=== PATIENT | female | born 1940 | race Caucasian/White ===

== ENCOUNTER 2017-08-29 11:34 | Day surgery (SDC) | payer MEDICARE, OTHER ==
[2017-08-29 13:05] LABS: #Basophils 0.1 thou/uL (0.0-0.2); #Eosinphils 0.3 thou/uL (0.0-0.7); #Lymphocytes 2.3 thou/uL (1.20-3.40); #Monocytes 0.6 thou/uL (0.11-0.59); #Neutrophils 4.5 thou/uL (1.40-6.50); %Basophils 1.2 % (0.0-1.0); %Eosinophils 3.4 % (0.0-10.0); %Lymphocytes 29.4 % (21.0-51.0); %Monocytes 7.3 % (0.0-10.0); %Neutrophils 58.7 % (42.0-75.0); Hemoglobin 16.6 g/dL (12.0-16.0); Mean Corpuscular HGB CONC 32.7 g/dL (32.0-36.0); Mean Corpuscular Hemoglobin 29.4 pg (27.0-31.0); Mean Corpuscular Volume 89.8 fl (81.0-99.0); Mean Platelet Volume 6.7 fL (7.4-10.4); Platelet Count 265 thou/uL (130-400); RBC Distribution Width 13.1 % (11.5-14.5); Red Blood Cell (RBC) Count 5.64 mill/uL (4.20-5.40); White Blood Cell (WBC) Count 7.7 thou/uL (4.8-10.8)
[2017-08-29] MEDS ORDERED: ePHEDrine/0.9% NaCl/PF SYRINGE 50 mg/10 ml ONE (13:15)
[2017-08-29] MEDS ORDERED: EPINEPHrine 1 MG/ML AMP ONE (13:16)
[2017-08-29] MEDS ORDERED: EPINEPHrine 1 MG/10 ML Abboject SYRINGE ONE (13:16)
[2017-08-29 13:24] LABS: INR-International Normal Ratio 1.3; PTT 39.6 SEC (22.9-36.1); Prothrombin Time 16.4 SEC (12.0-14.7)
[2017-08-29 13:27] LABS: Anion Gap 13 mmol/L (10-20); BUN (Urea Nitrogen) 8 mg/dL (9.8-20.1); Calc. Creatinine Clearance 0 mL/min (70-130); Calcium 9.5 mg/dL (7.8-10.44); Carbon Dioxide 26 mmol/L (23-31); Chloride 104 mmol/L (98-107); Estimated GFR-MDRD Greater than 90; Glucose 97 mg/dL (83-110); Potassium 3.6 mmol/L (3.5-5.1); Sodium 139 mmol/L (136-145)
--- NOTE | 2017-08-29 13:48 | OP ---
DATE OF PROCEDURE: 08/29/2017 PROCEDURE: Cardioversion. SURGEON: Dr. Edgar Arrington REFERRING PHYSICIAN: Dr. Norberto Fischer REASON FOR PROCEDURE: Ms. Miller is a 77-year-old woman with history of atrial arrhythmias. She h as had atrial fibrillation ablation in 05/2017, now had recurrence of atypical atrial flutter. She i s here for cardioversion. PROCEDURE: The patient received propofol per Anesthesia specialist. After adequate sedation achieve d, a 50 joule shock promptly converted the patient back to sinus bradycardia. After sinus bradycardi a was noted, transient external pacing was instituted, but then the patient regained a good junctiona l rhythm without excessive asystole at 40 beats per minute. She is continued to be monitored. Heart rate then improved to 50 beats per minute, sinus bradycardia. CONCLUSION: 1. Successful cardioversion. 2. Significant bradycardia post-cardioversion, seems to have a degree of sinus node disease. We conrad l stop digoxin and continue reducing her metoprolol if necessary. 3. Continue Eliquis. 4. Consider pacing if no adequate response is seen response is seen through the usual daily activiti es and symptomatic bradycardia occurs.
[2017-08-29] MEDS ORDERED: PROPOFOL 20 ML ONE (13:59)
--- NOTE | 2017-08-29 16:03 | EKG ---
Test Reason : PREOP Blood Pressure : / mmHG Vent. Rate : 096 BPM Atrial Rate : 096 BPM P-R Int : 000 ms QRS Dur : 078 ms QT Int : 366 ms P-R-T Axes : 000 -62 -63 degrees QTc Int : 462 ms Sinus rhythm with short UT Left anterior fascicular block Moderate voltage criteria for LVH, may be normal variant Abnormal ECG Confirmed by DONNA MABRY ([id number]) on 08/29/2017 4:02:45 PM Referred By: LEON Confirmed By:DONNA MABRY
[2017-08-29] MEDS ORDERED: PROPOFOL 200 MG/20 ML VIAL ONE (16:05)
--- NOTE | 2017-08-29 16:05 | EKG ---
Test Reason : POST CARDIOVERSION Blood Pressure : / mmHG Vent. Rate : 055 BPM Atrial Rate : 055 BPM P-R Int : 340 ms QRS Dur : 088 ms QT Int : 456 ms P-R-T Axes : 073 -58 074 degrees QTc Int : 436 ms Sinus bradycardia with 1st degree A-V block Left anterior fascicular block Abnormal ECG Confirmed by DONNA MABRY ([id number]) on 08/29/2017 4:05:05 PM Referred By: LEON Confirmed By:DONNA MABRY
== END 2017-08-29 16:28 | disposition home or self-care (01) ==
LOC: CCL 11:34
PROVIDERS: ATTEND Internal Medicine Cardiovascular Disease
PROC: 5A2204Z Restoration of Cardiac Rhythm, Single (ICD-10-PCS; principal; 2017-08-29)
DX: I48.0 Paroxysmal atrial fibrillation (principal); I10 Essential (primary) hypertension; E78.5 Hyperlipidemia, unspecified; F17.200 Nicotine dependence, unspecified, uncomplicated; Z88.1 Allergy status to other antibiotic agents; Z88.8 Allergy status to other drugs, medicaments and biological substances; Z79.01 Long term (current) use of anticoagulants; Z79.899 Other long term (current) drug therapy
CPT/HCPCS: 36415; 80048; 85025; 85610; 85730; 92960; 93005; 93010; J0171; J2704

== ENCOUNTER 2018-04-25 13:47 | Outpatient (CLI) | payer MEDICARE, OTHER ==
--- NOTE | 2018-04-25 15:22 | MRI ---
MRI LUMBAR SPINE WITHOUT CONTRAST: Date: 04/25/18 COMPARISON: 12/20/14. 03/17/2016 HISTORY: Stenosis in lumbar spine. Chronic right-sided pain, radiating to right hip and down right knee. Progr essive worsening. TECHNIQUE: MRI lumbar spine is performed without intravenous Gadolinium administration. Multisequential, multipl brennen imaging is performed. FINDINGS: There is a stable scoliotic curvature of the lumbar spine. There is heterogeneous marrow signal intensity in the lumbar vertebra, similar to the previous examin ation. There is intrinsic T1 hypointensity with associated T2 and STIR hyperintensity involving the L 2 and L3 vertebral bodies, predominantly along the left side. There is also T1 marrow signal hypointe nsity with associated T2 and STIR hyperintensity involving the L3-L4 end plates. There is also eviden ce of T1 marrow signal hypointensity with associated T2 and STIR hyperintensity predominantly involvi ng the inferior end plate of L5, superior end plate of S1. There appears to be multilevel Type I Ilya c change. Note, on the STIR images, there does appear to be significant fluid at the L2-L3 disc space , less than the prior exam. There appears to be loss of vertebral body height at L3 with questionable end plate irregularity. The possibility of diskitis in this region cannot be excluded. Postcontrast imaging is recommended. Conus medullaris terminates at the mid T12 level. Left parapelvic cysts and right parapelvic cysts are suspected. Cyst in the right kidney is suggested . There does appear to be laminectomy defect at L2-L3 and L3-L4. T12-L1: No significant central canal stenosis. Neural foramina are mildly narrowed. L1-L2: Desiccation with moderate loss of disc space height. Generalized disc bulge, ligamentum flavu m thickening, and facet hypertrophy have mild central canal stenosis. Moderate to severe right forami nal narrowing. Left neural foramen is patent. L2-L3: Laminectomy defect. There appears to be a broad based disc osteophyte complex. Mild central c anal stenosis. Severe right and mild left neural foraminal narrowing. L3-L4: There appears to be a laminectomy defect. No high grade central canal stenosis. There is momo re loss of disc space height with broad based disc bulge. Right neural foramen is patent. Moderate le ft neural foraminal narrowing. L4-L5: Desiccation with severe loss of disc space height. No high grade central canal stenosis. Mild to moderate right and moderate left neural foraminal narrowing. L5-S1: Desiccation with moderate loss of disc space height. There is a broad based disc osteophyte c omplex. No significant central canal stenosis. Moderate to severe bilateral neural foraminal narrowin g. IMPRESSION: 1. Laminectomy defect at L2-L3 and L3-L4. There are very degrees of central canal stenosis, none of which are high grade. There is significant multilevel neural foraminal narrowing. 2. There appears to be loss of vertebral body height at L3. 3. There appears to be fluid in the L2-L3 disc space, less than previous. However, there appears to be interval loss of vertebral body height and end plate irregularity. Component of diskitis/osteomyel itis cannot be entirely excluded. Consider post contrast imaging. 4. Probable Type I Modic changes at L2-L3, L3-L4, and L5-S1. CODE T.
== END 2018-04-25 13:48 | disposition home or self-care (01) ==
LOC: BICMRI 13:47
PROVIDERS: ATTEND Nurse Practitioner Family
DX: M48.062 Spinal stenosis, lumbar region with neurogenic claudication (principal); Z98.890 Other specified postprocedural states
CPT/HCPCS: 72148

== ENCOUNTER 2018-05-14 08:28 | Observation (INO) | payer MEDICARE, OTHER ==
[2018-05-14 09:36] LABS: #Basophils 0.1 thou/uL (0.0-0.2); #Eosinphils 0.3 thou/uL (0.0-0.7); #Lymphocytes 2.3 thou/uL (1.20-3.40); #Monocytes 0.6 thou/uL (0.11-0.59); #Neutrophils 4.9 thou/uL (1.40-6.50); %Eosinophils 3.6 % (0.0-10.0); %Lymphocytes 28.1 % (21.0-51.0); %Monocytes 7.5 % (0.0-10.0); %Neutrophils 59.8 % (42.0-75.0); Hemoglobin 16.4 g/dL (12.0-16.0); Mean Corpuscular HGB CONC 33.5 g/dL (32.0-36.0); Mean Corpuscular Hemoglobin 30.4 pg (27.0-31.0); Mean Corpuscular Volume 90.8 fL (78.0-98.0); Mean Platelet Volume 6.5 fL (7.4-10.4); Platelet Count 258 thou/uL (130-400); RBC Distribution Width 12.6 % (11.5-14.5); White Blood Cell (WBC) Count 8.2 thou/uL (4.8-10.8)
[2018-05-14 09:50] LABS: INR-International Normal Ratio 1.2; PTT 34.1 SEC (22.9-36.1); Prothrombin Time 15.2 SEC (12.0-14.7)
[2018-05-14] MEDS ORDERED: Heparin 25,000 units/D5W 500 ML ONE (09:57)
[2018-05-14] MEDS ORDERED: Heparin 10,000 UNITS/1 ML VIAL ONE ×3 (09:57→12:04)
[2018-05-14 09:58] LABS: ALT (SGPT) 14 U/L (8-55); AST (SGOT) 22 U/L (5-34); Albumin 4.1 g/dL (3.4-4.8); Alkaline Phosphatase 81 U/L (40-150); Anion Gap 14 mmol/L (10-20); BUN (Urea Nitrogen) 9 mg/dL (9.8-20.1); Bilirubin, Total 0.7 mg/dL (0.2-1.2); Calc. Creatinine Clearance 74 mL/min (70-130); Calcium 9.7 mg/dL (7.8-10.44); Carbon Dioxide 24 mmol/L (23-31); Chloride 106 mmol/L (98-107); Estimated GFR-MDRD 84; Globulin 3.1 g/dL (2.4-3.5); Glucose 106 mg/dL (83-110); Potassium 3.8 mmol/L (3.5-5.1); Protein, Total 7.2 g/dL (6.0-8.3); Sodium 140 mmol/L (136-145)
[2018-05-14] MEDS ORDERED: Midazolam HCl 2 mg/2 ml Vial ONE (10:18)
[2018-05-14] MEDS ORDERED: Lidocaine 1% (PF) 30 ML VIAL ONE (10:21)
[2018-05-14] MEDS ORDERED: Fentanyl 100 MCG/2 ML VIAL ONE ×4 (10:55→17:01)
[2018-05-14] MEDS ORDERED: Isoproterenol 0.2 MG/1 ML AMP ONE (13:08)
[2018-05-14] MEDS ORDERED: Protamine Sulfate 50 MG/5 ML VIAL ONE (13:22)
[2018-05-14] MEDS ORDERED: Ondansetron PF 4 MG/2 ML Vial ONE (14:27)
[2018-05-14] MEDS ORDERED: Glycopyrrolate 0.2 MG/ML 5 ML SYRINGE ONE (14:54)
[2018-05-14] MEDS ORDERED: PROPOFOL 200 MG/20 ML VIAL ONE (14:54)
[2018-05-14] MEDS ORDERED: Lidocaine 1% PF 5 ML VIAL ONE (14:54)
[2018-05-14] MEDS ORDERED: Fluticasone Propionate Nasal Spray 16 gm Bottle NASAL PRN (15:25)
[2018-05-14] MEDS ORDERED: BIOTENE MOUTH SPRAY 44.3 ML MM PRN (15:30)
[2018-05-14] MEDS ORDERED: Acetaminophen/Codeine 30-300mg Tablet PO PRN ×2 (15:30)
--- NOTE | 2018-05-14 16:29 | RAD ---
AP CHEST: INDICATIONS: Post cardiac catheterization. COMPARISON: 08/15/2013 FINDINGS: The lung burkett appear clear of infiltrate. No evidence of vascular congestion or edema. Heart size is mildly prominent. Vascularity is within the normal range. IMPRESSION: No acute process identified. POS: YUKO
[2018-05-14] MEDS ORDERED: Morphine ER 30 MG TAB PO SCH (16:30)
[2018-05-14] MEDS ORDERED: [UNRECOGNIZED DRUG - OTHER] PO SCH (17:00)
[2018-05-14] MEDS ORDERED: ASPERCREME TOP SCH (17:00)
[2018-05-14] MEDS ORDERED: Promethazine HCl 25 MG/ML VIAL IM/IV PRN (17:04)
[2018-05-14] MEDS ORDERED: Ondansetron HCl/PF 4 MG/2 ML Vial IVP PRN (17:04)
--- NOTE | 2018-05-14 17:13 | EKG ---
Test Reason : PREOP Blood Pressure : / mmHG Vent. Rate : 096 BPM Atrial Rate : 115 BPM P-R Int : 000 ms QRS Dur : 092 ms QT Int : 386 ms P-R-T Axes : 000 -66 094 degrees QTc Int : 487 ms undetermined rhythm Left anterior fascicular block Nonspecific ST and T wave abnormality Prolonged QT Abnormal ECG When compared with ECG of 29-AUG-2017 13:26, Significant changes have occurred Confirmed by DR. Carol LIAO ([id number]) on 05/14/2018 5:12:29 PM Referred By: LEON Confirmed By:DR. Carol LIAO
[2018-05-14] MEDS ORDERED: HYDROmorphone 2 MG/ML VIAL ONE (17:24)
[2018-05-14] MEDS ORDERED: Morphine 4 MG/ML VIAL SLOW IVP PRN (17:46)
[2018-05-14] MEDS ORDERED: Morphine 4 MG/ML VIAL ONE (20:01)
[2018-05-14] MEDS ORDERED: Rosuvastatin 20 MG TAB PO SCH (21:00)
[2018-05-14] MEDS ORDERED: MAGNESIUM AMINO ACID CHELATE PO SCH (21:00)
[2018-05-14] MEDS ORDERED: Amitriptyline HCl 25 MG TAB PO SCH (21:00)
[2018-05-14] MEDS ORDERED: DULoxetine 30 MG CAP PO SCH (21:00)
[2018-05-14] MEDS: Fish Oil 1,000 MG CAP PO SCH (21:29)
[2018-05-14] MEDS: Gabapentin 300 MG CAP PO SCH ×2 (21:29→21:36)
[2018-05-14] MEDS: Potassium Chloride 20 MEQ TAB PO SCH (21:32)
[2018-05-14] MEDS: Lysine 500 MG TAB PO SCH (21:34)
[2018-05-14] MEDS: Ubidecarenone 50 MG CAP PO SCH (21:35)
[2018-05-14] MEDS: Ascorbic Acid 500 mg Chewable Tablet PO SCH (21:37)
[2018-05-14] MEDS: Apixaban 5 MG TAB PO SCH (21:38)
[2018-05-14 22:50] VITALS: BMI 27.6
[2018-05-14] MEDS: Morphine ER 30 MG TAB PO SCH (23:35)
--- NOTE | 2018-05-15 02:47 | OP ---
DATE OF PROCEDURE: 05/14/2018 PROCEDURE PERFORMED: Electrophysiology study and radiofrequency ablation. REFERRING PHYSICIAN: Jewelry Sorter, Dr. Norberto Fischer. REASON FOR PROCEDURE: Ms. Miller is a 78-year-old woman with prior history of atrial fibrillation and flutter. She had a prior pulmonary venous isolation procedure on May 16, 2017. Subsequently, atypical flutter and then typical flutter was seen on August 29, 2017. Currently, is sustaining somewhat typical appearing atrial flutter. She has moderate to severe aortic regurgitation, hypertension. She has been anticoagulated with Eliquis, which was held today. She is here for an EP study and radiofrequency ablation. DESCRIPTION OF PROCEDURE: The patient received propofol by Anesthesia specialist. After adequate level of sedation achieved, the left and right femoral veins were prepped, draped, and anesthetized with the subcutaneous lidocaine and cannulated x2 each side. Following that, the left femoral vein through an 11-Green[place]ic sheet, an intracardiac ultrasound catheter was advanced to the right atrium. Due to tortuosity, venogram was also performed on this side. Following that, a preface sheath was used to advance a DuoDeca catheter to the right atrium, His Bundle, right ventricle and eventually CS position. Pace mapping recording was performed in each location. From the right vein, a ThermoCool SFST catheter was advanced to the right atrium, and 3D mapping and also pace mapping was performed. The initial rhythm was suggestive of right atrial flutter. Following that, transseptal puncture was performedx2 under ultrasound/intracardiac ultrasound guidance. The Lasso catheter was used to obtain left atrial map and a ThermoCool SFST catheter was used to place ablation lines. Three out of four pulmonary veins were remained isolated and the left superior and inferior pulmonary vein was found to be reconnected. These reconnections were ablated.The posterior wall was mostly isolated, but roof line required reinforcement achieving complete the posterior wall isolation. The pace mapping seems to have indicated a a long post pacing interval from over left atrial side and the right atrial side was short andat this point, the ablation catheter was withdrawn to the right atrium and activation mapping of the flutter was obtained. Activation mapping was suggestive of isthmus dependency and radiofrequency ablation in the anterior portion and the posterior portion of the prior line terminated atrial flutter. Proximal CS pacing was performed and additional lesions were placed to ascertain significant increase in the transisthmus time, which increased to over 150 milliseconds. The complete block was demonstrated at longest post pacing interval adjacent to the ablation line. At this point, Isuprel was initiated and the pulmonary veins were remapped for a reconnection. The reconnection was reablated. The ICE catheter was used to assess any pericardial effusion, but none was found. Cardiac silhouette did not change. The His bundle was found to be 41 milliseconds pre and post ablation, significant bradycardia was seen. Sinus node recovery time was 2647 milliseconds. Isuprel was administered, with that the ventricular rate improved to 61 beats per minute. At this point, the catheter was pulled in the quality assurance qa lab technician. Throughout the procedure , after transseptal, IV heparin was infused, which was checked periodically with ACT measurements and adjusted to keep ACT over 350. CONCLUSION: 1. Successful re-isolation of left upper and lower pulmonary vein and posterior wall. 2. Successful cavotricuspid isthmus ablation and terminated atrial flutter. Job ID: [id number] [facility]
[2018-05-15] MEDS: Morphine ER 30 MG TAB PO SCH ×2 (06:10→14:00)
[2018-05-15] MEDS: Fish Oil 1,000 MG CAP PO SCH (08:33)
[2018-05-15] MEDS: Ascorbic Acid 500 mg Chewable Tablet PO SCH (08:34)
[2018-05-15] MEDS: Gabapentin 300 MG CAP PO SCH ×2 (08:34→13:59)
[2018-05-15] MEDS: Potassium Chloride 20 MEQ TAB PO SCH (08:35)
[2018-05-15] MEDS: Ubidecarenone 50 MG CAP PO SCH (08:36)
[2018-05-15] MEDS: Apixaban 5 MG TAB PO SCH (08:37)
[2018-05-15] MEDS ORDERED: Amlodipine 5 MG TAB PO SCH (09:00)
[2018-05-15] MEDS ORDERED: Losartan 25 MG TAB PO SCH (09:00)
[2018-05-15] MEDS ORDERED: Multivit, Therapeutic 1 TAB PO SCH (09:00)
[2018-05-15] MEDS ORDERED: Hydrochlorothiazide 25 MG TAB PO SCH (09:00)
[2018-05-15] MEDS: Lysine 500 MG TAB PO SCH (09:30)
[2018-05-15 14:24] VITALS: BP 117/56; TEMP 98.2
--- NOTE | 2018-05-15 16:10 | EKG ---
Test Reason : Blood Pressure : / mmHG Vent. Rate : 076 BPM Atrial Rate : 076 BPM P-R Int : 302 ms QRS Dur : 092 ms QT Int : 454 ms P-R-T Axes : 080 -71 090 degrees QTc Int : 510 ms Poor data quality, interpretation may be adversely affected Sinus rhythm with 1st degree A-V block Possible Left atrial enlargement Pulmonary disease pattern Left anterior fascicular block T wave abnormality, consider lateral ischemia Poor anterior R wave progression Abnormal ECG No previous ECGs available Confirmed by DR. Carol LIAO ([id number]) on 05/15/2018 4:09:54 PM Referred By: LOEN Confirmed By:DR. Carol LIAO
--- NOTE | 2018-05-16 12:58 | DIS ---
DATE OF ADMISSION: 05/14/2018 DATE OF DISCHARGE: 05/15/2018 ADMITTING DIAGNOSES: Atrial fibrillation and atrial flutter. PROCEDURES PERFORMED: Include electrophysiology study and radiofrequency ablation for typical atrial flutter and atrial fibrillation. HISTORY OF PRESENT ILLNESS: Ms. Miller is a pleasant 78-year-old woman with a history of atrial flutter, status post PVI on 05/16/2017. She also has a history of significant bradycardia, which required stopping digoxin after her last cardioversion. She has done well on low-dose metoprolol. She had late recurrence of atrial flutter that appears to be typical, and she was taken to the EP lab for redo ablation for atrial fibrillation as well as possibly typical flutter. On 05/14/2018, she had her EP study and ablation performed. She underwent successful re-isolation of the left upper pulmonary vein as well as successful cavotricuspid isthmus ablation, which successfully terminated her atrial flutter. She was not inducible post ablation. She has done well post ablation, maintaining sinus rhythm. Her most pressing issue has been flare-up and back pain, which is a chronic issue for her with her severe arthritis. She is ambulating and tolerating p.o. intake without difficulty. Her Mane was removed and she is voiding. She denies any heart racing, palpitations, chest pain, pressure, syncope, near syncope, stroke, stroke-like symptoms, bleeding, or hematoma formation at groin sites. Her pain is now controlled after having resumed her home medications. PHYSICAL EXAMINATION: VITAL SIGNS: Temperature 98.3 degrees Fahrenheit, pulse 73, blood pressure 120/59, respirations 19, and oxygen is 92% on 2 L via nasal cannula. GENERAL: The patient is alert and oriented. Speech is clear. Affect is appropriate. She is ambulating with a cane, which is her baseline mobility status. She is in no apparent distress. She reports her pain is at her baseline status, having resumed her home medications. LUNGS: Clear to auscultation bilaterally without wheezes, crackles, or rhonchi. CARDIOVASCULAR: Heart rate is irregularly irregular. PMI is nondisplaced. At this point, there is no concern for pericardial effusion or tamponade. Her bilateral groin sites are stable without hematoma or bleeding issue. Dressings remained clean, dry, and intact. EXTREMITIES: Warm and dry to touch without clubbing, cyanosis, or edema. NEUROLOGIC: Grossly intact and nonfocal. Her gait as mentioned is stable with a cane. DISCHARGE MEDICATIONS: We will have her resume her home medications: 1. Cymbalta 30 mg p.o. at bedtime. 2. Eliquis 5 mg p.o. b.i.d. 3. Amlodipine 5 mg q.a.m. 4. Elavil 50 mg at bedtime. 5. Hydrochlorothiazide 25 mg q.a.m. 6. Gabapentin 600 mg p.o. q.i.d. 7. Flonase as needed. 8. Toprol-XL 25 mg p.o. daily. 9. Meriva 500 mg p.o. q.i.d. 10. Magnesium p.o. b.i.d. 11. Lysine 500 mg p.o. b.i.d. 12. Losartan 100 mg p.o. daily. 13. Potassium chloride 20 mEq p.o. b.i.d. 14. Lovaza 2 capsules p.o. b.i.d. 15. Multivitamin once daily. 16. Morphine sulfate 30 mg p.o. t.i.d. 17. CoQ10 of 100 mg p.o. b.i.d. 18. Crestor 20 mg p.o. at bedtime. 19. Vitamin C 1000 mg p.o. b.i.d. 20. Dime Box oral demulcent 1 spray topical p.r.n. 21. Vitamin D3 of 1000 units p.o. q.i.d. DISCHARGE INSTRUCTIONS: No soaking baths or lifting greater than 15 pounds x1 week. Light duty for the next 24 hours, then resume gradually as tolerated. Do not stop taking Eliquis unless directed to do so by [facility]. Follow up in 4 to 6 weeks with [facility] or sooner if symptoms dictate. Contact [facility] with any post ablation questions or concerns. Job ID: [id number]
== END 2018-05-15 15:36 | disposition home or self-care (01) ==
LOC: CCL 08:28 → 2NO 16:14
PROVIDERS: ADMIT Internal Medicine Cardiovascular Disease; ATTEND Internal Medicine Cardiovascular Disease
PROC: 02583ZZ Destruction of Conduction Mechanism, Percutaneous Approach (ICD-10-PCS; principal; 2018-05-14)
PROC: 02K83ZZ Map Conduction Mechanism, Percutaneous Approach (ICD-10-PCS; 2018-05-14)
PROC: 4A023FZ Measurement of Cardiac Rhythm, Percutaneous Approach (ICD-10-PCS; 2018-05-14)
PROC: 4A0234Z Measurement of Cardiac Electrical Activity, Percutaneous Approach (ICD-10-PCS; 2018-05-14)
DX: I48.91 Unspecified atrial fibrillation (principal); I48.4 Atypical atrial flutter; I48.3 Typical atrial flutter; I10 Essential (primary) hypertension; I35.1 Nonrheumatic aortic (valve) insufficiency; Z88.1 Allergy status to other antibiotic agents; Z88.8 Allergy status to other drugs, medicaments and biological substances; Z79.01 Long term (current) use of anticoagulants; Z79.891 Long term (current) use of opiate analgesic; Z79.899 Other long term (current) drug therapy
CPT/HCPCS: 71045; 76942; 80053; 85025; 85347 ×2; 85610; 85730; 93005; 93613; 93623; 93655; 93656; 93662; 96374; 96375; 96376; C1730; C1731; C1732 ×2; C1759; C1769; G0378; 36415; 93010; J1170; J1644; J2001; J2250; J2270; J2405; J2704; J2720; J3010

== ENCOUNTER 2018-06-08 14:27 | Outpatient (CLI) | payer MEDICARE, OTHER ==
--- NOTE | 2018-06-08 15:37 | RAD ---
LUMBAR SPINE FOUR VIEWS: HISTORY: Back pain. FINDINGS: On the AP projection, there is a prominent curvature to the left with apex at L1-L2, measured at 26 . This has progressed when compared to exam of 03/17/2016. There are degenerative changes with spurring. There is compression of the L2 vertebra, which has pro gressed since the prior study. There is anterolisthesis of L2 on L3, which has progressed since the prior study. There is mild anterolisthesis at L3-L4, similar to the prior study. There is wedging o f the L3 vertebra, which has also progressed. IMPRESSION: 1. Prominent scoliotic curvature with apex at L2 with prominent degenerative changes. 2. The moderate compression of L2 has progressed since the prior examination. 3. The anterior wedge compression of L3 has progressed since the prior examination. 4. Spondylolisthesis at L2-L3 is now noted. 5. There is mild anterolisthesis at L3-L4, which is similar to the prior examination. POS: YUKO
== END 2018-06-08 14:28 | disposition home or self-care (01) ==
LOC: TBSIIMAG 14:27
PROVIDERS: ATTEND Neurological Surgery
DX: M54.5 Low back pain (principal); S34.103D Unspecified injury to L3 level of lumbar spinal cord, subsequent encounter; M48.062 Spinal stenosis, lumbar region with neurogenic claudication; G45.0 Vertebro-basilar artery syndrome; M43.16 Spondylolisthesis, lumbar region
CPT/HCPCS: 72110